=== PATIENT | male | born 1995 | race Caucasian/White ===

== ENCOUNTER 2017-08-02 02:51 | Emergency (ER) | payer BC ==
[2017-08-02] MEDS ORDERED: Sodium Chloride 0.9% 10 ML Syringe FLUSH PRN (03:04)
[2017-08-02] MEDS ORDERED: Aspirin 81 MG Tab.Chew PO ONE (03:05)
--- NOTE | 2017-08-02 03:07 | EDM.PDOC ---
ED HPI GENERAL MEDICAL PROBLEM - General Stated Complaint: DRUG ABUSE Time Seen by Provider: 08/02/17 02:51 Source of Information: Reports: Patient History Limitations: Reports: Other (anxiety) - History of Present Illness INITIAL COMMENTS - FREE TEXT/NARRATIVE: 22 y.o.w.m came to the ed 1 hour after he snored cocaine. The last time before today was a few weeks ago. He is using Marijuana every other day. Pt came to the ed due to anxiety and left arm pain. He is attending a college in the area. No N/V/D. He denied any other drug use, no ETOH. BP was 165/85 on arrival, Temp 36.6 RR 18 Pulse ox 100% on RA Pulse 80 BPM. Onset Date: 08/02/17 Onset Time: 02:00 Duration: Hour(s):, Intermittent Location: Reports: Chest, Upper Extremity, Left Quality: Reports: Ache Severity: Mild Improves with: Reports: Medication Worsens with: Reports: Movement (cocaine drug use.) left shoulder Pain Score (Numeric/FACES): 5 - Related Data Allergies Allergy/AdvReac Type Severity Reaction Status Date / Time clarithromycin [From Biaxin] Allergy Other Verified 08/02/17 03:13 Home Meds: Home Meds EPINEPHrine [Epipen] 0.3 mg IM ASDIRECTED PRN 06/14/15 [History] Past Medical History Musculoskeletal History: Reports: Other (See Below) Other Musculoskeletal History: thumb fracture Immunologic History: Reports: Other (See Below) Social & Family History - Tobacco Use Smoking Status *Q: Never Smoker Second Hand Smoke Exposure: No - Recreational Drug Use Recreational Drug Use: No - Living Situation & Occupation Living situation: Reports: Single Occupation: Student ED ROS GENERAL - Review of Systems Review Of Systems: See Below Constitutional: Reports: No Symptoms HEENT: Reports: No Symptoms Respiratory: Reports: No Symptoms Cardiovascular: Reports: Chest Pain, Lightheadedness Endocrine: Reports: No Symptoms GI/Abdominal: Reports: No Symptoms : Reports: No Symptoms Musculoskeletal: Reports: No Symptoms, Arm Pain (left arm pain) Skin: Reports: No Symptoms Neurological: Reports: Numbness (left arm) Psychiatric: Reports: No Symptoms, Anxiety Hematologic/Lymphatic: Reports: No Symptoms Immunologic: Reports: No Symptoms ED EXAM, GENERAL - Physical Exam Exam: See Below Exam Limited By: No Limitations General Appearance: Alert, WD/WN, Anxious, Mild Distress Eye Exam: Bilateral Eye: Normal Inspection Ears: Normal External Exam Ear Exam: Bilateral Ear: Auricle Normal Nose: Normal Inspection, Normal Mucosa, No Blood Throat/Mouth: Normal Inspection, Normal Lips, Normal Teeth Head: Atraumatic, Normocephalic Neck: Normal Inspection, Supple, Non-Tender, Full Range of Motion Respiratory/Chest: No Respiratory Distress, Lungs Clear, Normal Breath Sounds Cardiovascular: Normal Peripheral Pulses, Regular Rate, Rhythm, No Edema, No Gallop, No JVD, No Murmur, No Rub Peripheral Pulses: 1+: Radial (L) GI/Abdominal: Normal Bowel Sounds, Soft, Non-Tender, No Organomegaly (Male) Exam: Deferred Rectal (Males) Exam: Deferred Back Exam: Normal Inspection, Full Range of Motion Extremities: Normal Inspection, Normal Range of Motion, Non-Tender, No Pedal Edema, Normal Capillary Refill Neurological: Alert, Oriented, CN II-XII Intact, Normal Cognition, Normal Gait, Other (left arm feels "numb") Psychiatric: Normal Affect, Normal Mood Skin Exam: Warm, Dry, Intact, Normal Color, No Rash Lymphatic: No Adenopathy EKG INTERPRETATION EKG Date: 08/02/17 Time: 04:15 Rhythm: NSR Rate (Beats/Min): 81 [place]: Normal P-Wave: Present QRS: Normal ST-T: Normal QT: Normal Comparison: NA - No Prior EKG Course - Vital Signs Text/Narrative:: 22 y.o.w.m came to the ed 1 hour after he snored cocaine. The last time before today was a few weeks ago. He is using Marijuana every other day. Pt came to the ed due to anxiety and left arm pain. He is attending a college in the area. No N/V/D. He denied any other drug use, no ETOH. BP was 165/85 on arrival, Temp 36.6 RR 18 Pulse ox 100% on RA Pulse 80 BPM. PE: WNWD WM, anxiety, chest and left arm pain Labs: Patient refused the urine drug screen and Tx of cocaine use. CBC a HGB or 16, BMP showed K of 3.2 Imaging: Refused Impression: Cocaine abuse by Hx, HTN, anxiety, angina, hypokalemia Tx: NS, ASA, NTG, potassium. Pt refused bezos for anxiety. Reexam: Pt felt better after ASA, NTG and NS were given and requested to be discharged. Plan: D/C with instructions Last Recorded V/S: Last Vital Signs Temp 36.8 C 08/02/17 04:40 Pulse 80 08/02/17 04:40 Resp 16 08/02/17 04:40 BP 145/73 H 08/02/17 04:40 Pulse Ox 97 08/02/17 04:40 - Orders/Labs/Meds Orders: Active Orders 24 hr Category Date Time Status EKG Documentation Completion [RC] ASDIRECTED Care 08/02/17 03:03 Active Peripheral IV Insertion Adult [OM.PC] Routine Oth 08/02/17 03:04 Ordered EKG 12 Lead [EK] Routine Ther 08/02/17 03:02 Ordered Labs: Laboratory Tests 08/02/17 08/02/17 08/02/17 Range/Units 03:20 03:20 03:20 WBC 6.7 (4.5-12.0) X10-3/uL RBC 5.32 (4.30-5.75) x10(6)uL Hgb 16.0 H (11.5-15.5) g/dL Hct 47.6 (30.0-51.3) % MCV 89.5 (80-96) fL MCH 30.2 (27.7-33.6) pg MCHC 33.7 (32.2-35.4) g/dL RDW 12.4 (11.5-15.5) % Plt Count 180 (125-369) X10(3)uL MPV 7.7 (7.4-10.4) fL Neut % (Auto) 73.4 (46-82) % Lymph % (Auto) 15.9 (13-37) % [place] % (Auto) 9.4 (4-12) % Eos % (Auto) 1 (1.0-5.0) % Baso % (Auto) 1 (0-2) % Neut # (Auto) 4.9 (1.6-8.3) # Lymph # (Auto) 1.1 (0.6-5.0) # [place] # (Auto) 0.6 (0.0-1.3) # Eos # (Auto) 0.1 (0.0-0.8) # Baso # (Auto) 0.0 (0.0-0.2) # Sodium 137 (135-145) mmol/L Potassium 3.2 L (3.5-5.3) mmol/L Chloride 100 (100-110) mmol/L Carbon Dioxide 25 (21-32) mmol/L BUN 21 H (7-18) mg/dL Creatinine 1.3 (0.70-1.30) mg/dL Est Cr Clr Drug Dosing 105.63 mL/min Estimated GFR (MDRD) > 60 (>60) BUN/Creatinine Ratio 16.2 (9-20) Glucose 149 H (80-116) mg/dL Calcium 9.1 (8.6-10.2) mg/dL Creatine Kinase 125 (60-160) IU/L Troponin I < 0.017 L (<0.017-0.056) ng/mL Meds: Medications Discontinued Medications Generic Name Dose Route Start Last Admin Trade Name Freq PRN Reason Stop Dose Admin Aspirin 324 mg 08/02/17 03:05 08/02/17 03:50 Aspirin PO 08/02/17 03:06 324 mg ONETIME ONE Administration Sodium Chloride 1,000 mls @ 125 mls/hr 08/02/17 03:15 08/02/17 04:03 Normal Saline IV 125 mls/hr ASDIRECTED BALDO Administration Lorazepam 0.5 mg 08/02/17 03:19 08/02/17 04:40 Ativan IVPUSH 08/02/17 03:20 Not Given ONETIME ONE Nitroglycerin 0.5 gm 08/02/17 03:17 08/02/17 04:04 Nitro-Bid 2% TOP 08/02/17 03:18 0.5 gm ONETIME ONE Administration Potassium Chloride 40 meq 08/02/17 04:33 08/02/17 04:39 Klor-Con M20 PO 08/02/17 04:34 40 meq ONETIME ONE Administration Sodium Chloride 10 ml 08/02/17 03:04 08/02/17 04:02 Saline Flush FLUSH 10 ml ASDIRECTED PRN Administration Keep Vein Open Departure - Departure Time of Disposition: 04:36 Disposition: Home, Self-Care 01 Condition: Good Clinical Impression: Cocaine abuse, HTN (hypertension) with goal to be determined, Hypokalemia Instructions: Stimulant Use Disorder-Cocaine Referrals: PCP,None [Primary Care Provider] - Forms: ED Department Discharge Additional Instructions: Please f/u with your PMD. Please come back if your symptoms get worse. - My Orders Last 24 Hours: My Active Orders 08/02/17 03:02 EKG 12 Lead [EK] Routine 08/02/17 03:03 EKG Documentation Completion [RC] ASDIRECTED 08/02/17 03:04 Peripheral IV Insertion Adult [OM.PC] Routine - Assessment/Plan Last 24 Hours: My Active Orders 08/02/17 03:02 EKG 12 Lead [EK] Routine 08/02/17 03:03 EKG Documentation Completion [RC] ASDIRECTED 08/02/17 03:04 Peripheral IV Insertion Adult [OM.PC] Routine
[2017-08-02] MEDS ORDERED: Sodium Chloride 0.9% 1,000 ML IV SCH (03:15)
[2017-08-02] MEDS ORDERED: Nitroglycerin 2% Oint 1 GM UD Packet TOP ONE (03:17)
[2017-08-02] MEDS ORDERED: LORazepam 2 MG/ML SDV IVPUSH ONE (03:19)
[2017-08-02] MEDS ORDERED: Potassium Chloride 20 MEQ Tab.ER PO ONE (04:33)
[2017-08-02 04:41] VITALS: BP 145/73
== END 2017-08-02 04:55 | disposition home or self-care (01) ==
LOC: FB.ED 02:51
DX: I20.9 Angina pectoris, unspecified (principal); F14.10 Cocaine abuse, uncomplicated; I10 Essential (primary) hypertension; F41.9 Anxiety disorder, unspecified; E87.6 Hypokalemia; Z88.1 Allergy status to other antibiotic agents
CPT/HCPCS: 36415; 80048; 82550; 84484; 85025; 93005; 96360; 99284; A9270; J7040; J7050; J7030